=== PATIENT | male | born 1960 | race Caucasian/White ===

== ENCOUNTER 2022-04-21 19:13 | Emergency (ER) | payer OTHER, SELFPAY ==
[2022-04-21] VITALS (10 sets, daily range): BP systolic 141–184; BP diastolic 88–125; PULSE 84–134; RESP 17–26; TEMP 36.3; O2SAT 94–97
--- NOTE | 2022-04-21 19:14 | USR_ITS ---
PROCEDURE INFORMATION: Exam: US Duplex Left Lower Extremity Veins, Limited Exam date and time: 04/21/2022 8:24 PM Age: 61 years old Clinical indication: Edema, localized; Lower extremity, left; Patient HX: Left le pain and edema with left medial thigh erythema. Also, shortness of breath x 2-3 days. ; Additional info: Dvt TECHNIQUE: Imaging protocol: Real-time Duplex ultrasound of the Left Lower Extremity with 2-D mohamud scale, color Doppler flow and spectral waveform analysis with image documentation. Limited exam focused on the left lower extremity veins. COMPARISON: No relevant prior studies available. FINDINGS: Left deep veins: Hypoechoic, occlusive thrombus in the common femoral, profunda femoral, femoral, popliteal and posterior tibial veins. Hypoechoic, nonocclusive thrombus in the external iliac vein. Left superficial veins: Unremarkable. Saphenofemoral junction is patent without thrombus. Soft tissues: Subcutaneous edema. US/[place] [address] IMPRESSION: Extensive left lower extremity deep venous thrombosis, as described above.
--- NOTE | 2022-04-21 20:50 | XRR_ITS ---
PROCEDURE INFORMATION: Exam: XR Chest Exam date and time: 04/21/2022 10:10 PM Age: 61 years old Clinical indication: Angina pectoris and chest pressure and chest wall pain; Additional info: Cp TECHNIQUE: Imaging protocol: Radiologic exam of the chest. Views: 1 view. COMPARISON: No relevant prior studies available. FINDINGS: Lungs: Unremarkable. No consolidation. Pleural spaces: Unremarkable. No pleural effusion. No pneumothorax. Heart/Mediastinum: Unremarkable. No cardiomegaly. Bones/joints: No acute osseous abnormality. Degenerative changes. XR/XR chest 1V portable 11350 IMPRESSION: No acute radiographic findings.
--- NOTE | 2022-04-21 20:51 | ECG_ITS ---
[facility] Test Date: 2022-04-21 Pat Name: Kyle Naidu Department: Room: Gender: Male Hydrometer Tester: : 1960 Requested By: Dorothy Edwards Order Number: [id number] Israel MD: Cammy Hawkins M.D. Measurements Intervals [place] Rate: 80 P: 0 [place]: 0 QRS: 68 QRSD: 125 T: 9 QT: 371 QTc: 430 Interpretive Statements ATRIAL FIBRILLATION RIGHT BUNDLE BRANCH BLOCK [120+ ms QRS DURATION, UPRIGHT V1, 40+ ms S IN I/aVL/V4/V5/V6] MODERATE T-WAVE ABNORMALITY, CONSIDER ANTEROLATERAL ISCHEMIA [-0.1+ mV T-WAVE IN V3-V6] Compared to ECG 04/21/2022 20:53:59 No significant changes Electronically Signed On 04-22-2022 9:25:16 POURED PIPE MAKER by Cammy Hawkins M.D. [email or web address] [email or web address]/OM/[id number]
--- NOTE | 2022-04-21 20:53 | ECG_ITS ---
[facility] Test Date: 2022-04-21 Pat Name: Kyle Naidu Department: Room: Gender: Male Loose Hand Packer: : 1960 Requested By: Dorothy Edwards Order Number: [id number] Israel MD: Cammy Hawkins M.D. Measurements Intervals [place] Rate: 126 P: 0 SC: 0 QRS: 73 QRSD: 130 T: -2 QT: 325 QTc: 471 Interpretive Statements ATRIAL FIBRILLATION WITH RAPID VENTRICULAR RESPONSE RIGHT BUNDLE BRANCH BLOCK [120+ ms QRS DURATION, UPRIGHT V1, 40+ ms S IN I/aVL/V4/V5/V6] ST DEVIATION AND MODERATE T-WAVE ABNORMALITY, CONSIDER ANTEROLATERAL ISCHEMIA [-0.1+ mV T-WAVE IN V3-V6] No previous ECG available for comparison Electronically Signed On 04-22-2022 9:27:01 PROCEDURES NURSE by Cammy Hawkins M.D. [email or web address] [email or web address]/[id number]
--- NOTE | 2022-04-21 20:57 | W.ED.EXTPRO ---
HPI - Extremity Problem General: Chief complaint: Extremity Problem,Nontraumatic Stated complaint: Possible Blood Clot Left Leg Time Seen by Provider: 04/21/22 20:36 Source: patient Mode of arrival: ambulatory Limitations: no limitations History of Present Illness: 61-year-old male states that he has had swelling in his left leg over the last few days. He states he is alsohad some shortness of breath he denies any chest pain he is in A. fib with RVR here he has no history of A. fib. He denies any cough or fever Physical Exam Const: COMMON NORMALS: no acute distress, patient oriented x3 and healthy appearing HENMT: COMMON NORMALS: normocephalic and atraumatic HEAD & SCALP: normocephalic and atraumatic Eye: COMMON NORMALS: Equal, round and reactive pupils present and EOMs intact bilaterally PUPIL: Yes Equal, round and reactive pupils present Neck/C-Spine: COMMON NORMALS: full ROM and supple Chest: COMMONS NORMALS: normal inspection of the chest and normal palpation of entire chest wall Resp: COMMON NORMALS: normal respiratory effort, No retractions, No use of accessory muscles and clear to auscultation bilaterally AUSCULTATION: clear to auscultation bilaterally Cardio: COMMON NORMALS: No murmurs present (Cardio) RATE: tachycardic RHYTHM: abnormal rhythm irregularly irregular GI: COMMON NORMALS: Normal to inspection, nondistended, normoactive bowel sounds present, Soft to palpation, non-tender and no masses PALPATION: Yes Soft to palpation Extremity: COMMON NORMALS: full ROM NARRATIVE EXTREMITY EXAM: Swelling to left lower extremity Neuro: COMMON NORMALS: patient oriented x3, moves all extremities and no focal motor deficits Psych: COMMON NORMALS: mental status grossly normal, Normal thought process present and cooperative THOUGHT PROCESS: Normal thought process present Skin: COMMON NORMALS: no rashes or lesions noted and no wounds GENERAL SKIN EXAM: no rashes or lesions noted Course Vital Signs: Vital signs: Vital Signs Temperature 97.4 F L 04/21/22 19:41 Pulse Rate 92 04/21/22 23:13 Respiratory Rate 23 H 04/21/22 23:13 Blood Pressure 148/91 04/21/22 23:13 Pulse Oximetry 94 04/21/22 23:13 Oxygen Delivery Me thod 04/21/22 23:13 MDM - Extremity (Nontraumatic) Medical Decision Making Patient presents with swelling in his left lower leg ultrasound did show a DVT he is also having some shortness of breath and he was in A. fib with RVR CT scan shows a large bilateral PE with right heart strain I spoke to [facility] will transfer there to their ICU for higher level of care for possible thrombectomy Lab Data 04/21/22 20:56 04/21/22 20:56 Radiology Impressions Venous Duplex 04/21/22 19:14 IMPRESSION: Extensive left lower extremity deep venous thrombosis, as described above. ADDENDUM: 04/21/222107 ADDENDUM: THIS REPORT CONTAINS FINDINGS THAT MAY BE CRITICAL TO PATIENT CARE. The findings were verbally communicated via telephone conference with ANNMARIE DACOSTA at 9:06 PM BUSINESS ADMINISTRATION INSTRUCTOR on 04/21/2022. The findings were acknowledged and understood. Chest X-Ray 04/21/22 20:50 IMPRESSION: No acute radiographic findings. Chest CTA 04/21/22 21:06 IMPRESSION: 1. Bilateral pulmonary emboli with evidence of right heart strain. 2. Dependent left greater than right lower lobe consolidations, likely due to atelectasis. Superimposed developing infarcts can not be excluded. 3. Small left greater than right pleural effusions. 4. Additional findings, as above. ADDENDUM: 04/21/222200 ADDENDUM: THIS REPORT CONTAINS FINDINGS THAT MAY BE CRITICAL TO PATIENT CARE. The findings were verbally communicated via telephone conference with ANNMARIE DACOSTA at 9:58 PM BUSINESS ADMINISTRATION INSTRUCTOR on 04/21/2022. The findings were acknowledged and understood. Laboratory Results WBC 14.4 10^3/uL (4.0-10.0) H 04/21/22 20:56 RBC 5.46 10^6/uL (4.1-5.3) H 04/21/22 20:56 Hgb 17.5 g/dL (11.7-16.6) H 04/21/22 20:56 Hct 50.9 % (42.0-52.0) 04/21/22 20:56 MCV 93.2 fl (80-94) 04/21/22 20:56 MCH 32.1 pg (28.0-34.0) 04/21/22 20:56 MCHC 34.4 g/dL (30.0-36.0) 04/21/22 20:56 RDW 14.6 % (12.1-15.1) 04/21/22 20:56 Plt Count 191 10^3/cmm (130-400) 04/21/22 20:56 MPV 10.1 fL (7.4-10.4) 04/21/22 20:56 Neut % (Auto) 79.0 % 04/21/22 20:56 Lymph % (Auto) 10.0 % 04/21/22 20:56 Mcduffie % (Auto) 8.8 % 04/21/22 20:56 Eos % (Auto) 1.0 % 04/21/22 20:56 Baso % (Auto) 0.6 % 04/21/22 20:56 Neut # (Auto) 11.37 10^3/uL (1.8-7.7) H 04/21/22 20:56 Lymph # (Auto) 1.4 10^3/uL (0.8-4.8) 04/21/22 20:56 Mcduffie # (Auto) 1.3 10^3/uL (0.2-0.9) H 04/21/22 20:56 Eos # (Auto) 0.1 10^3/uL (0.0-0.8) 04/21/22 20:56 Baso # (Auto) 0.1 10^3/uL (0.0-0.1) 04/21/22 20:56 Nucleated RBC % (auto) 0 % 04/21/22 20:56 Nucleated RBCs # 0.0 /100WBC 04/21/22 20:56 PT 14.20 SECONDS (12.1-14.9) 04/21/22 20:50 INR 1.06 (0.8-1.2) 04/21/22 20:50 APTT 29.5 SECONDS (23.9-36.7) 04/21/22 20:50 Sodium 135 mmol/L (136-145) L 04/21/22 20:56 Potassium 5.2 mmol/L (3.5-5.1) H 04/21/22 20:56 Chloride 99 mmol/L (98-107) 04/21/22 20:56 Carbon Dioxide 25 mmol/L (22-29) 04/21/22 20:56 Anion Gap 16.2 (5-19) 04/21/22 20:56 BUN 15 mg/dL (6-20) 04/21/22 20:56 Creatinine 0.9 mg/dL (0.7-1.2) 04/21/22 20:56 GFR Calculation 86.4 mL/min (90-130) L 04/21/22 20:56 Glucose 85 mg/dL (65-115) 04/21/22 20:56 Calculated Osmolality 280 mOsm/kg (285-295) L 04/21/22 20:56 Calcium 9.2 mg/dL (8.5-10.5) 04/21/22 20:56 Total Bilirubin 1.1 mg/dL (0.15-1.2) 04/21/22 20:56 AST 23 U/L (0-40) 04/21/22 20:56 ALT 34 U/L (0-41) 04/21/22 20:56 Alkaline Phosphatase 100 U/L (40-130) 04/21/22 20:56 Troponin T Baseline 21 ng/L (0-15) H 04/21/22 20:56 Troponin T 120 Minute 21.15 ng/L (0-15) H 04/21/22 22:29 Delta Troponin T 0.15 ABS# (0-10) 04/21/22 22:29 NT-Pro-B Natriuret Pep 1562 pg/mL (0-125) H 04/21/22 21:06 Total Protein 7.2 g/dL (6.6-8.7) 04/21/22 20:56 Albumin 3.8 g/dL (3.5-5.2) 04/21/22 20:56 Globulin 3.4 g/dL (1.3-4.6) 04/21/22 20:56 Lipase 19 U/L (13-60) 04/21/22 20:56 EKG Data EKG 1: I personally reviewed and interpreted this EKG as follows: EKG interpretation date: 04/21/22 EKG interpretation time: 20:53 Interpretation: afib hr [address] or t wave abnormalities qrs 130 qtc 400 Critical Care Time Critical Care Time: Critical Care Time: Yes Total Critical Care Time: 42 Attestation: The high probability of a clinically significant, sudden or life threatening deterioration of the patient's cv system(s) required my full and direct attention, intervention and personal management. The critical care time is as shown. This time is in addition to time spent performing any reported procedures but includes the following: [x] Data and vital sign review and interpretation [x] Patient assessment, examination and intervention [x] Documentation [x] Medication orders and management Discharge Plan Discharge Patient Disposition: Xfer Short-Term Hosp Clinical Impression: Deep vein thrombosis of lower extremity, Pulmonary embolism, Atrial fibrillation with RVR Condition: Stable Referrals: Jorge Harrington MD [Primary Care Provider] - Coding Level of Care Code ED Medical Facilities Section Director for Chg Fwd Exam Comprehensive
[2022-04-21 21:04] LABS: Basophils # 0.1 10^3/uL (0.0-0.1); Basophils % 0.6 %; Eosinophils # 0.1 10^3/uL (0.0-0.8); Hematocrit 50.9 % (42.0-52.0); Hemoglobin 17.5 g/dL (11.7-16.6); Lymphocytes # 1.4 10^3/uL (0.8-4.8); Mean Corpuscular HGB Conc 34.4 g/dL (30.0-36.0); Mean Corpuscular Hemoglobin 32.1 pg (28.0-34.0); Mean Corpuscular Volume 93.2 fl (80-94); Mean Platelet Volume 10.1 fL (7.4-10.4); Monocytes # 1.3 10^3/uL (0.2-0.9); Monocytes % 8.8 %; Neutrophils # 11.37 10^3/uL (1.8-7.7); Nucleated Red Blood Cells % 0 %; Platelet Count 191 10^3/cmm (130-400); Red Blood Count 5.46 10^6/uL (4.1-5.3); Red Cell Distribution Width 14.6 % (12.1-15.1); White Blood Count 14.4 10^3/uL (4.0-10.0)
--- NOTE | 2022-04-21 21:06 | CTR_ITS ---
PROCEDURE INFORMATION: Exam: CTA Chest With Contrast Exam date and time: 04/21/2022 9:32 PM Age: 61 years old Clinical indication: Shortness of breath; Patient HX: SOB with tachycardia. Positive for dvt. TECHNIQUE: Imaging protocol: Computed tomographic angiography of the chest with contrast. Axial, coronal and sagittal reformatted images were created and reviewed. 3D rendering (Not supervised by radiologist): MIP and/or 3D reconstructed images were created by the technologist. Radiation optimization: All CT scans at this facility use at least one of these dose optimization techniques: automated exposure control; mA and/or kV adjustment per patient size (includes targeted exams where dose is matched to clinical indication); or iterative reconstruction. Contrast material: OMNI 350; Contrast volume: 94 ml; Contrast route: INTRAVENOUS (IV); COMPARISON: No relevant prior studies available. RADIATION DOSE METRICS: Total DLP (mGy-cm): 563.55 FINDINGS: Pulmonary arteries: Contrast opacification satisfactory. Dilated main pulmonary artery segments, consistent with pulmonary hypertension. Bilateral pulmonary emboli, more extensive on the right, extending from the main pulmonary artery to the subsegmental branches diffusely. Nonocclusive thrombi in the central and distal left lower lobe pulmonary arteries. Aorta: Unremarkable. No aneurysm or dissection. Lungs: Mild central peribronchial thickening, suggestive of airway inflammation. Dependent left greater than right lower lobe consolidations, likely due to atelectasis. Pleural spaces: Small left greater than right pleural effusions. No pneumothorax. Heart: Unremarkable. No cardiomegaly. No pericardial effusion. Heart RV/LV ratio: 1.3. Lymph nodes: Calcified mediastinal and hilar lymph nodes, consistent with prior granulomatous disease. Bones/joints: No acute osseous abnormality. Degenerative changes. Old right lateral 9th rib fracture. Soft tissues: Unremarkable. CT/CT angio chest PE protcl [id number] IMPRESSION: 1. Bilateral pulmonary emboli with evidence of right heart strain. 2. Dependent left greater than right lower lobe consolidations, likely due to atelectasis. Superimposed developing infarcts can not be excluded. 3. Small left greater than right pleural effusions. 4. Additional findings, as above.
[2022-04-21] MEDS: enoxaparin 150 mg/mL Syringe SUBCUT (21:12)
[2022-04-21] MEDS: dilTIAZem 5 mg/mL SDV 5 mL 20 MG IVP (21:13)
--- NOTE | 2022-04-21 21:15 | PC.NURSE ---
patient responded well to IVP of diltiazem; Dr. Edwards informed, verbal order to hold infusion at this time; repeat EKG performed.
[2022-04-21 21:28] LABS: Troponin(5th) Baseline 21 ng/L (0-15)
[2022-04-21 21:29] LABS: Alanine Aminotransferase 34 U/L (0-41); Albumin Level 3.8 g/dL (3.5-5.2); Alkaline Phosphatase 100 U/L (40-130); Anion Gap 16.2 (5-19); Aspartate Amino Transferase 23 U/L (0-40); Blood Urea Nitrogen 15 mg/dL (6-20); Calcium 9.2 mg/dL (8.5-10.5); Carbon Dioxide 25 mmol/L (22-29); Chloride 99 mmol/L (98-107); Globulin 3.4 g/dL (1.3-4.6); Glomerular Filtration Rate 86.4 mL/min (90-130); Glucose 85 mg/dL (65-115); Lipase 19 U/L (13-60); Osmolality Calculated 280 mOsm/kg (285-295); Potassium 5.2 mmol/L (3.5-5.1); Sodium 135 mmol/L (136-145); Total Bilirubin 1.1 mg/dL (0.15-1.2); Total Protein 7.2 g/dL (6.6-8.7)
[2022-04-21] MEDS: iohexol 350 mg/mL 500 mL Btl (per mL) IV (21:43)
[2022-04-21 21:51] LABS: NT Pro B Type Natriuretic Pept 1562 pg/mL (0-125)
[2022-04-21 22:15] LABS: INR 1.06 (0.8-1.2); Partial Thromboplastin Time 29.5 SECONDS (23.9-36.7)
[2022-04-21 22:59] LABS: Troponin 5 2HR 21.15 ng/L (0-15)
[2022-04-21 23:10] LABS: Troponin 5 2HR Delta 0.15 ABS# (0-10)
[2022-04-22 00:16] VITALS: BP 172/87; PULSE 99; RESP 22; O2SAT 93
[2022-04-22 01:39] VITALS: BP 150/79; PULSE 121; RESP 19; O2SAT 94
[2022-04-22] MEDS: dilTIAZem 100 MG in sodium chloride 0.9% (add-van) 100 ML IV (01:39)
[2022-04-22 02:10] VITALS: BP 140/90; PULSE 113; RESP 17; O2SAT 94
[2022-04-22 02:30] VITALS: BP 147/97; PULSE 91; RESP 17; O2SAT 94
--- NOTE | 2022-04-22 02:54 | PC.NURSE ---
[facility]EMS here to transport patient to [facility]; report given and care turned over. Diltiazem continued by EMS for transport
[2022-04-22 03:02] LABS: Troponin 5 6HR 23.42 ng/L (0-15)
[2022-04-22 03:03] LABS: Troponin 5 6HR Delta 2.42 ng/L (0-12)
== END 2022-04-22 02:50 | disposition short-term general hospital (02) ==
PROVIDERS: Emergency Provider Emergency Medicine; PCP Family Medicine
DX: I82.412 Acute embolism and thrombosis of left femoral vein (principal); I82.432 Acute embolism and thrombosis of left popliteal vein; I82.442 Acute embolism and thrombosis of left tibial vein; I26.99 Other pulmonary embolism without acute cor pulmonale; I48.20 Chronic atrial fibrillation, unspecified
CPT/HCPCS: 71045; 71275; 80053; 83690; 83880; 84484; 85025; 85610; 85730; 93005; 93971; 96365; 96372; 96375; 99285; J1650; J3490; Q9967